=== PATIENT | male | born 1980 | race Caucasian/White ===

== ENCOUNTER 2020-08-24 15:41 | Emergency (ER) | payer OTHER ==
[2020-08-24 16:07] VITALS: BP 149/83
[2020-08-24] MEDS ORDERED: PENICILLIN-VK250 MG PO (16:21)
[2020-08-24] MEDS ORDERED: NORCO 325 MG-51 TA1 PO (16:21)
[2020-08-24] MEDS ORDERED: ZOFRAN ODT4 MG PO (16:31)
== END 2020-08-24 16:53 | disposition home or self-care (01) ==
LOC: ED 15:41
DX: K05.10 Chronic gingivitis, plaque induced (principal)
CPT/HCPCS: J1885